=== PATIENT | female | born 1965 | race African-American/Black ===

== ENCOUNTER 2016-07-01 12:26 | Inpatient (IN) | payer OTHER ==
[2016-07-01 18:08] VITALS: BMI 26.2
--- NOTE | 2016-07-01 18:13 | HP ---
CIWA Score - CIWA Score Nausea/Vomitin-Mild Nausea/No Vomiting Muscle Tremors: 4-Moderate,w/Arms Extend Anxiety: 4-Mod. Anxious/Guarded Agitation: 4-Moderately Restless Paroxysmal Sweats: 1-Minimal Palms Moist Orientation: 1-Uncertain about Date Tacttile Disturbances: 0-None Auditory Disturbances: 0-None Visual Disturbances: 0-None Headache: 1-Very Mild CIWA-Ar Total Score: 16 Admission ROS BHS - HPI Chief Complaint: WITHDRAWAL SX Allergies/Adverse Reactions: Allergies Allergy/AdvReac Type Severity Reaction Status Date / Time No Known Allergies Allergy Verified 07/01/16 18:17 History of Present Illness: 50 YEARS OLD FEMALE WITH LONG HISTORY OF ALCOHOL NICOTINE DEPENDENCE HAS GERD, METHADONE 130 MG DAILY AND DEPRESSION IS ADMITTED TO DETOX Exam Limitations: No Limitations - Ebola screening Have you traveled outside of the country in the last 21 days: No Have you had contact with anyone from an Ebola affected area: No Have you been sick,other than usual withdrawal symptoms: No Do you have a fever: No - Review of Systems Constitutional: Chills, Loss of Appetite, Changes in sleep, Unintentional Wgt. Loss, Unexplained wgt Loss EENT: reports: No Symptoms Reported, Dental Problems (NO TEETH) Respiratory: reports: No Symptoms reported Cardiac: reports: No Symptoms Reported GI: reports: Nausea, Poor Appetite, Poor Fluid Intake, Indigestion, Abdominal cramping : reports: No Symptoms Reported Musculoskeletal: reports: Back Pain, Joint Pain, Muscle Pain, Neck Pain Integumentary: reports: Change in Color (IV OPIOID) Neuro: reports: Tremors Endocrine: reports: No Symptoms Reported Hematology: reports: No Symptoms Reported Psychiatric: reports: Judgement Intact, Orientated x3, Depressed Other Systems: Reviewed and Negative Patient History - Patient Medical History Hx Anemia: No Hx Asthma: No Hx Chronic Obstructive Pulmonary Disease (COPD): No Hx Cancer: No Hx Cardiac Disorders: No Hx Congestive Heart Failure: No Hx Hypertension: No Hx Hypercholesterolemia: No Hx Pacemaker: No HX Cerebrovascular Accident: No Hx Seizures: No Hx Dementia: No Hx Diabetes: No Hx Gastrointestinal Disorders: Yes Hx Liver Disease: No Hx Genitourinary Disorders: No Hx Sexually Transmitted Disorders: No Hx Renal Disease (ESRD): No Hx Thyroid Disease: No Hx Human Immunodeficiency Virus (HIV): No Hx Hepatitis C: No Hx Depression: Yes Hx Suicide Attempt: No Hx Bipolar Disorder: No Hx Schizophrenia: No - Patient Surgical History Past Surgical History: No - PPD History Previous Implant?: Yes Documented Results: Negative w/o proof Implanted On Prior [facility] Admission?: No PPD to be Administered?: Yes - Reproductive History Patient is a Female of Child Bearing Age (11 -55 yrs old): Yes Last Menstrual Period: 07/02/11 Patient : No - Smoking Cessation Smoking history: Current every day smoker Have you smoked in the past 12 months: Yes Aproximately how many cigarettes per day: 20 Cigars Per Day: 0 Hx Chewing Tobacco Use: No Initiated information on smoking cessation: Yes 'Breaking Loose' booklet given: 07/01/16 - Substance & Tx. History Hx Alcohol Use: Yes Hx Substance Use: Yes Substance Use Type: Alcohol, Cocaine, Opiates Hx Substance Use Treatment: No - Substances Abused Alcohol Route: Oral Frequency: Daily Family Disease History - Family Disease History Family Disease History: Other: Father (NO CONTACT), Mother (NO CONTACT) Other Family History: PATIENT WAS ADOPTED SINCE INFANT Admission Physical Exam BHS - Vital Signs Vital Signs: Vital Signs - 24 hr 07/01/16 18:05 Temperature 97.4 F L Pulse Rate 72 Respiratory 18 Rate Blood Pressure 150/80 - Physical General Appearance: Yes: Appropriately Dressed, Moderate Distress, Tremorous, Irritable, Sweating, Anxious HEENTM: Yes: Hearing grossly Normal, Normal ENT Inspection, Normocephalic, Normal Voice Respiratory: Yes: Chest Non-Tender, Lungs Clear, Normal Breath Sounds, No Respiratory Distress, No Accessory Muscle Use Neck: Yes: Supple, Trachea in good position Breast: Yes: Breasts Symetrical Cardiology: Yes: Regular Rhythm, Regular Rate, S1, S2 Abdominal: Yes: Non Tender, Soft Genitourinary: Yes: Within Normal Limits Back: Yes: Normal Inspection Musculoskeletal: Yes: full range of Motion, Gait Steady Extremities: Yes: Normal Range of Motion, Non-Tender, Tremors Neurological: Yes: Fully Oriented, Alert, Motor Strength 5/5, Normal Response, Depressed Affect Integumentary: Yes: Warm, Track Jeff Lymphatic: Yes: Within Normal Limits - Diagnostic (1) Alcohol dependence with uncomplicated withdrawal Current Visit: Yes Status: Acute (2) GERD (gastroesophageal reflux disease) Current Visit: Yes Status: Chronic Qualifiers: Esophagitis presence: without esophagitis Qualified Code(s): K21.9 - Gastro-esophageal reflux disease without esophagitis (3) Nicotine dependence Current Visit: Yes Status: Acute Qualifiers: Nicotine product type: cigarettes Substance use status: in withdrawal Qualified Code(s): F17.213 - Nicotine dependence, cigarettes, with withdrawal (4) Methadone maintenance therapy patient Current Visit: Yes Status: Chronic Comment: 130 MG VERIFICATION PENDING (5) Depression (emotion) Current Visit: Yes Status: Suspected Qualifiers: Depression Type: dysthymia Qualified Code(s): F34.1 - Dysthymic disorder (6) Cocaine dependence, uncomplicated Current Visit: Yes Status: Chronic Cleared for Admission S - Detox or Rehab [facility] Level of Care: Medically Managed Detox Regimen/Protocol: Librium S Breath Alcohol Content Breath Alcohol Content: 0 Urine Pregancy Test - Result Urine Test Results: Negative- NO Line Present Urine Drug Screen - Results Drug Screen Negative: No Urine Drug Screen Results: JANNET-Cocaine, OPI-Opiates, MTD-Methadone
[2016-07-01] MEDS ORDERED: MAGNESIUM CITRATE 300 ML BOTTLE PO PRN (18:23)
[2016-07-01] MEDS ORDERED: LOPERAMIDE HCL 2 MG CAPSULE PO PRN (18:23)
[2016-07-01] MEDS ORDERED: MENTHOL/PHENOL 1 EACH UD MM PRN (18:23)
[2016-07-01] MEDS ORDERED: MAG HYDROX/AL HYDROX/SIMETH 30 ML UNIT-DOSE CUP PO PRN (18:23)
[2016-07-01] MEDS ORDERED: NICOTINE POLACRILEX 4 MG GUM BC PRN (18:23)
[2016-07-01] MEDS ORDERED: guaiFENesin/D-METHORPHAN HB 10 ML UNIT-DOSE CUPS PO PRN (18:23)
[2016-07-01] MEDS ORDERED: chlordiazePOXIDE HCL 25 MG CAPSULE PO PRN (18:23)
[2016-07-01] MEDS ORDERED: ACETAMINOPHEN 325 MG TABLET (FP) PO PRN (18:23)
[2016-07-01] MEDS ORDERED: P-EPHED 60MG/TRIPROLIDI 2.5MG TABLET PO PRN (18:23)
[2016-07-01] MEDS ORDERED: MAGNESIUM HYDROX 2400MG/30ML ORAL SUSPENSION 30 ML CUP PO PRN (18:23)
[2016-07-01] MEDS ORDERED: cloNIDine HCL 0.1 MG TABLET PO PRN (18:25)
[2016-07-01] MEDS ORDERED: chlordiazePOXIDE HCL 25 MG CAPSULE PO ONE (19:00)
[2016-07-01] MEDS: chlordiazePOXIDE HCL 25 MG CAPSULE PO SCH (22:09)
[2016-07-01] MEDS: RANITIDINE HCL 150 MG TABLET (FP) PO SCH (22:09)
[2016-07-01] MEDS: THIAMINE HCL 100 MG TABLET (FP) PO SCH (22:09)
[2016-07-01] MEDS: diphenhydrAMINE HCL 50 MG CAPSULE PO PRN (22:11)
[2016-07-01 23:27] LABS: URINE APPEARANCE CLEAR; URINE BILIRUBIN NEGATIVE (NEGATIVE); URINE BLOOD NEGATIVE (NEGATIVE); URINE COLOR YELLOW; URINE GLUCOSE (UA) NEGATIVE (NEGATIVE); URINE KETONE NEGATIVE (NEGATIVE); URINE NITRITE NEGATIVE (NEGATIVE); URINE PROTEIN NEGATIVE (NEGATIVE); URINE UROBILINOGEN NEGATIVE E.U./dl (0.2-1.0)
[2016-07-01 23:28] LABS: URINE LEUK ESTERASE TRACE (NEGATIVE)
[2016-07-01 23:29] LABS: URINE BACTERIA RARE /hpf (NONE SEEN); URINE MUCUS RARE; URINE RBC 1 /hpf (0-3); URINE WBC 2 /hpf (3-5)
[2016-07-02] MEDS: chlordiazePOXIDE HCL 25 MG CAPSULE PO SCH ×4 (05:30→22:27)
[2016-07-02] MEDS ORDERED: METHADONE HCL 10 MG TABLET PO ONE (08:52)
--- NOTE | 2016-07-02 08:56 | CONSULT ---
[facility] Psychiatric Consult - Data Date of interview: 07/02/16 Admission source: [facility] Identifying data: This is 50 years old female with psychiatric hospitalization history, history of suicidal attempts, history of Bipolar Disorder intoxicated with: Alcohol, Cocaine, Opioids nad Nicotine Substance Abuse History: Drug Screen Negative: No. Urine Drug Screen Results: JANNET-Cocaine, OPI-Opiates, MTD-Methadone. - Smoking Cessation. Smoking history : Current every day smoker. Have you smoked in the past 12 months: Yes. Aproximately how many cigarettes per day: 20. Cigars Per Day: 0. Hx Chewing Tobacco Use: No. Initiated information on smoking cessation: Yes. 'Breaking Loose' booklet given: 07/01/16. - Substance & Tx. History. Hx Alcohol Use: Yes. Hx Substance Use: Yes. Substance Use Type: Alcohol, Cocaine, Opiates. Hx Substance Use Treatment: No. - Substances Abused. Alcohol. Route: Oral. Frequency: Daily Medical History: GERD, MMTP 130mg per day Psychiatric History: Patient reprots history of Bipolar Disorder/ Schizoaffective disorder, Bipolar type, with most recent psychiatric admission on 2015 at [facility] for safety aftrer suicidal attempt - cutting hert left forearm, no stitches applyed, reports two additional suicidal attempts prior, cutting her left forearm after one of them 7 stitchers was applyed, reports no suicidal attempts since last [facility] admission. Reports currently taking: Depakote 750mg po bid. Lexapro 10mg poqd. Risperdal 1mg po qhs Physical/Sexual Abuse/Trauma History: Denies Additional Comment: Drug Screen Negative: No. Urine Drug Screen Results: JANNET- Cocaine, OPI-Opiates, MTD-Methadone. Depakote 750mg po bid. Lexapro 10mg poqd. Risperdal 1mg po qhs Mental Status Exam - Mental Status Exam Alert and Oriented to: Person Cognitive Function: Fair Patient Appearance: Unkempt Mood: Nervous, Anxious Affect: Mood Congruent Patient Behavior: Cooperative Speech Pattern: Appropriate Voice Loudness: Normal Thought Process: Goal Oriented Thought Disorder: Being Controlled Hallucinations: Denies Suicidal Ideation: Denies Homicidal Ideation: Denies Insight/Judgement: Fair Sleep: Difficulty falling asleep Appetite: Weight gain Muscle strength/Tone: Normal Gait/Station: Normal Additional Comments: Depakote 750mg po bid. Lexapro 10mg poqd. Risperdal 1mg po qhs Psychiatric Findings - Problem List ([place] 1, 2,3) (1) Alcohol dependence with uncomplicated withdrawal Current Visit: Yes Status: Acute (2) Nicotine dependence Current Visit: Yes Status: Acute Qualifiers: Nicotine product type: cigarettes Substance use status: in withdrawal Qualified Code(s): F17.213 - Nicotine dependence, cigarettes, with withdrawal (3) Cocaine dependence, uncomplicated Current Visit: Yes Status: Chronic (4) Methadone maintenance therapy patient Current Visit: Yes Status: Chronic Comment: 130 MG VERIFICATION PENDING (5) Bipolar 1 disorder Current Visit: Yes Status: Acute - Initial Treatment Plan Initial Treatment Plan: Depakote 750mg po bid. Lexapro 10mg poqd. Risperdal 1mg po qhs
[2016-07-02] MEDS ORDERED: METHADONE 120 MG, METHADONE 10 MG PO ONE (09:00)
[2016-07-02] MEDS ORDERED: METHADONE HCL 40 MG DISPERSABLE TABLET ONE (09:18)
[2016-07-02] MEDS ORDERED: METHADONE HCL 10 MG TABLET ONE (09:18)
[2016-07-02 09:51] LABS: MCH 22.6 pg (25.7-33.7); MCHC 31.1 g/dl (32.0-36.0); MEAN CELL VOLUME 72.8 fl (80-96); MEAN PLT VOLUME 8.7 fl (7.5-11.1); PLATELET COUNT 260 K/MM3 (134-434); RDW 15.9 % (11.6-15.6); WHITE BLOOD COUNT 5.2 K/mm3 (4.0-10.0)
--- NOTE | 2016-07-02 10:11 | PN ---
[facility] CIWA - CIWA Score Nausea/Vomitin Muscle Tremors: 3 Anxiety: 3 Agitation: 3 Paroxysmal Sweats: 3 Orientation: 0-Oriented Tacttile Disturbances: 2-Mild Itch/Numbness/Burn Auditory Disturbances: 0-None Visual Disturbances: 0-None Headache: 0-None Present CIWA-Ar Total Score: 17 S Progress Note (SOAP) Subjective: interrupted sleep, sweats, shakes, nausea, , cramps-stomach and legs Objective: 07/02/16 10:09 Vital Signs Temperature 98.6 F 07/02/16 09:52 Pulse Rate 72 07/02/16 09:52 Respiratory Rate 18 07/02/16 09:52 Blood Pressure 102/70 07/02/16 09:52 O2 Sat by Pulse Oximetry (%) Laboratory Tests 07/01/16 07/02/16 23:10 06:00 WBC 5.2 RBC 5.31 H Hgb 12.0 Hct 38.7 MCV 72.8 L MCHC 31.1 L RDW 15.9 H Plt Count 260 MPV 8.7 Urine Color Yellow Urine Appearance Clear Urine pH 5.0 Urine Protein Negative Urine Glucose (UA) Negative Urine Ketones Negative Urine Blood Negative Urine Nitrite Negative Urine Bilirubin Negative Urine Urobilinogen Negative Ur Leukocyte Esterase Trace H Urine RBC 1 Urine WBC 2 Ur Epithelial Cells Moderate Urine Bacteria Rare Urine Mucus Rare pt aox3 in nad ambulating Assessment: 07/02/16 10:10 withdrawal sx;s cramps Plan: cont. detox increase fluids flexeril 10mg tid/prn imodium prn
[2016-07-02] MEDS: PRENATAL VITAMINS W/ FOLIC ACID TABLET (FP) PO SCH (10:20)
[2016-07-02] MEDS: NICOTINE 21 MG/24 HOURS TOPICAL PATCH TD SCH (10:21)
[2016-07-02] MEDS: ESCITALOPRAM OXALATE 10 MG TABLET (FP) PO SCH (10:21)
[2016-07-02] MEDS: DIVALPROEX SODIUM 250 MG TABLET E.C. (FP) PO SCH ×2 (10:21→22:26)
[2016-07-02] MEDS: RANITIDINE HCL 150 MG TABLET (FP) PO SCH ×2 (10:21→22:27)
[2016-07-02 10:24] LABS: ALBUMIN 3.9 g/dl (3.4-5.0); ALK PHOS 79 U/L (45-117); ANION GAP 8 (8-16); BILIRUBIN,TOTAL 0.3 mg/dL (0.2-1.0); CALCIUM 9.4 mg/dL (8.5-10.1); CO2 31 mmol/L (21-32); COCKROFT - GAULT 101.7875; CREATININE 0.9 mg/dL (0.55-1.02); GLUCOSE,RANDOM 119 mg/dL (74-106); SGOT/AST 30 U/L (15-37); SGPT/ALT 22 U/L (12-78); TOT PROT 7.5 g/dl (6.4-8.2)
--- NOTE | 2016-07-02 13:12 | EKG ---
Test Reason : Blood Pressure : / mmHG Vent. Rate : 053 BPM Atrial Rate : 053 BPM P-R Int : 140 ms QRS Dur : 086 ms QT Int : 456 ms P-R-T Axes : 060 042 038 degrees QTc Int : 427 ms SINUS BRADYCARDIA OTHERWISE NORMAL ECG NO PREVIOUS ECGS AVAILABLE Confirmed by DAPHNEY TINSLEY MD ([id number]) on 07/02/2016 1:11:55 PM Referred By: Confirmed By:DAPHNEY TINSLEY MD
[2016-07-02] MEDS: diphenhydrAMINE HCL 50 MG CAPSULE PO PRN (22:27)
[2016-07-02] MEDS: THIAMINE HCL 100 MG TABLET (FP) PO SCH (22:27)
[2016-07-02] MEDS: risperiDONE 1 MG TABLET (FP) PO SCH (22:27)
[2016-07-03] MEDS ORDERED: METHADONE HCL 40 MG DISPERSABLE TABLET ONE (04:48)
[2016-07-03] MEDS ORDERED: METHADONE HCL 10 MG TABLET ONE (04:48)
[2016-07-03] MEDS: METHADONE 120 MG, METHADONE 10 MG PO SCH (05:42)
[2016-07-03] MEDS ORDERED: METHADONE HCL 40 MG DISPERSABLE TABLET PO SCH (06:00)
[2016-07-03] MEDS: chlordiazePOXIDE HCL 25 MG CAPSULE PO SCH ×3 (06:54→17:14)
[2016-07-03] MEDS: DIVALPROEX SODIUM 250 MG TABLET E.C. (FP) PO SCH ×2 (10:23→22:28)
[2016-07-03] MEDS: RANITIDINE HCL 150 MG TABLET (FP) PO SCH ×2 (10:23→22:28)
[2016-07-03] MEDS: PRENATAL VITAMINS W/ FOLIC ACID TABLET (FP) PO SCH (10:23)
[2016-07-03] MEDS: ESCITALOPRAM OXALATE 10 MG TABLET (FP) PO SCH (10:23)
[2016-07-03] MEDS: NICOTINE 21 MG/24 HOURS TOPICAL PATCH TD SCH (10:24)
--- NOTE | 2016-07-03 11:15 | PN ---
[facility] CIWA - CIWA Score Nausea/Vomitin-No Nausea/No Vomiting Muscle Tremors: 3 Anxiety: 2 Agitation: 3 Paroxysmal Sweats: 3 Orientation: 0-Oriented Tacttile Disturbances: 0-None Auditory Disturbances: 0-None Visual Disturbances: 0-None Headache: 0-None Present CIWA-Ar Total Score: 11 S Progress Note (SOAP) Subjective: sweats tired sleepy interrupted sleep Objective: 07/03/16 11:13 Vital Signs Temperature 97.4 F L 07/03/16 10:00 Pulse Rate 61 07/03/16 10:00 Respiratory Rate 20 07/03/16 10:00 Blood Pressure 93/71 07/03/16 10:00 O2 Sat by Pulse Oximetry (%) Laboratory Tests 07/01/16 07/02/16 07/02/16 23:10 06:00 06:00 WBC 5.2 RBC 5.31 H Hgb 12.0 Hct 38.7 MCV 72.8 L MCHC 31.1 L RDW 15.9 H Plt Count 260 MPV 8.7 Sodium 142 Potassium 3.8 Chloride 103 Carbon Dioxide 31 Anion Gap 8 BUN 5 L Creatinine 0.9 Creat Clearance w eGFR > 60 Random Glucose 119 H Calcium 9.4 Total Bilirubin 0.3 AST 30 ALT 22 Alkaline Phosphatase 79 Total Protein 7.5 Albumin 3.9 Urine Color Yellow Urine Appearance Clear Urine pH 5.0 Ur Specific [place] 1.015 Urine Protein Negative Urine Glucose (UA) Negative Urine Ketones Negative Urine Blood Negative Urine Nitrite Negative Urine Bilirubin Negative Urine Urobilinogen Negative Ur Leukocyte Esterase Trace H Urine RBC 1 Urine WBC 2 Ur Epithelial Cells Moderate Urine Bacteria Rare Urine Mucus Rare RPR Titer 07/02/16 06:00 WBC RBC Hgb Hct MCV MCHC RDW Plt Count MPV Sodium Potassium Chloride Carbon Dioxide Anion Gap BUN Creatinine Creat Clearance w eGFR Random Glucose Calcium Total Bilirubin AST ALT Alkaline Phosphatase Total Protein Albumin Urine Color Urine Appearance Urine pH Ur Specific [place] Urine Protein Urine Glucose (UA) Urine Ketones Urine Blood Urine Nitrite Urine Bilirubin Urine Urobilinogen Ur Leukocyte Esterase Urine RBC Urine WBC Ur Epithelial Cells Urine Bacteria Urine Mucus RPR Titer Nonreactive awake/alert ambulating no acute distress Assessment: 07/03/16 11:15 withdrawal sx Plan: continue detox increase fluids
[2016-07-03] MEDS: risperiDONE 1 MG TABLET (FP) PO SCH (22:28)
[2016-07-03] MEDS: THIAMINE HCL 100 MG TABLET (FP) PO SCH (22:28)
[2016-07-03] MEDS: chlordiazePOXIDE 5 MG CAPSULE PO SCH (22:28)
[2016-07-04] MEDS ORDERED: METHADONE HCL 40 MG DISPERSABLE TABLET ONE (04:05)
[2016-07-04] MEDS ORDERED: METHADONE HCL 10 MG TABLET ONE (04:05)
[2016-07-04] MEDS: chlordiazePOXIDE 5 MG CAPSULE PO SCH ×3 (06:35→18:15)
[2016-07-04] MEDS: METHADONE 120 MG, METHADONE 10 MG PO SCH (06:38)
[2016-07-04] MEDS: DIVALPROEX SODIUM 250 MG TABLET E.C. (FP) PO SCH ×2 (10:31→22:21)
[2016-07-04] MEDS: ESCITALOPRAM OXALATE 10 MG TABLET (FP) PO SCH (10:31)
[2016-07-04] MEDS: RANITIDINE HCL 150 MG TABLET (FP) PO SCH ×2 (10:31→22:21)
[2016-07-04] MEDS: NICOTINE 21 MG/24 HOURS TOPICAL PATCH TD SCH (10:33)
[2016-07-04] MEDS: PRENATAL VITAMINS W/ FOLIC ACID TABLET (FP) PO SCH (10:33)
--- NOTE | 2016-07-04 19:58 | PN ---
BHS Progress Note (SOAP) Subjective: Sweating, Vomiting, Tremors, Stomach Cramping, Body Aches. Objective: PT. A & O X 1 (DISORIENTED ABOUT DAY / DATE AND ABOUT CURRENT LOCATION). PT. OBSERVED AMBULATING ON UNIT. 07/04/16 19:56 Vital Signs Temperature 98.1 F 07/04/16 18:34 Pulse Rate 67 07/04/16 18:34 Respiratory Rate 18 07/04/16 18:34 Blood Pressure 109/69 07/04/16 18:34 O2 Sat by Pulse Oximetry (%) Laboratory Tests 07/01/16 07/02/16 07/02/16 23:10 06:00 06:00 WBC 5.2 RBC 5.31 H Hgb 12.0 Hct 38.7 MCV 72.8 L MCHC 31.1 L RDW 15.9 H Plt Count 260 MPV 8.7 Sodium 142 Potassium 3.8 Chloride 103 Carbon Dioxide 31 Anion Gap 8 BUN 5 L Creatinine 0.9 Creat Clearance w eGFR > 60 Random Glucose 119 H Calcium 9.4 Total Bilirubin 0.3 AST 30 ALT 22 Alkaline Phosphatase 79 Total Protein 7.5 Albumin 3.9 Urine Color Yellow Urine Appearance Clear Urine pH 5.0 Ur Specific [place] 1.015 Urine Protein Negative Urine Glucose (UA) Negative Urine Ketones Negative Urine Blood Negative Urine Nitrite Negative Urine Bilirubin Negative Urine Urobilinogen Negative Ur Leukocyte Esterase Trace H Urine RBC 1 Urine WBC 2 Ur Epithelial Cells Moderate Urine Bacteria Rare Urine Mucus Rare RPR Titer 07/02/16 06:00 WBC RBC Hgb Hct MCV MCHC RDW Plt Count MPV Sodium Potassium Chloride Carbon Dioxide Anion Gap BUN Creatinine Creat Clearance w eGFR Random Glucose Calcium Total Bilirubin AST ALT Alkaline Phosphatase Total Protein Albumin Urine Color Urine Appearance Urine pH Ur Specific [place] Urine Protein Urine Glucose (UA) Urine Ketones Urine Blood Urine Nitrite Urine Bilirubin Urine Urobilinogen Ur Leukocyte Esterase Urine RBC Urine WBC Ur Epithelial Cells Urine Bacteria Urine Mucus RPR Titer Nonreactive LABS NOTED. Assessment: 07/04/16 19:58 WITHDRAWAL SYMPTOMS. Plan: CONTINUE DETOX. ADVISED PT. TO FOLLOW-UP WITH [facility] AFTER DISCHARGE FROM DETOX FOR GENERAL MEDICAL ASSESSMENT AND FOR ABNORMAL ADMISSION CBC VALUES.
[2016-07-04] MEDS: THIAMINE HCL 100 MG TABLET (FP) PO SCH (22:21)
[2016-07-04] MEDS: risperiDONE 1 MG TABLET (FP) PO SCH (22:21)
[2016-07-04] MEDS: chlordiazePOXIDE HCL 10 MG CAPSULE PO SCH (22:21)
[2016-07-05] MEDS ORDERED: METHADONE HCL 10 MG TABLET ONE (04:31)
[2016-07-05] MEDS ORDERED: METHADONE HCL 40 MG DISPERSABLE TABLET ONE (04:31)
[2016-07-05] MEDS: chlordiazePOXIDE HCL 10 MG CAPSULE PO SCH ×2 (05:28→10:09)
[2016-07-05] MEDS: METHADONE 120 MG, METHADONE 10 MG PO SCH (05:28)
[2016-07-05 07:40] VITALS: BP 116/76; PULSE 59; TEMP 97.3
[2016-07-05] MEDS: DIVALPROEX SODIUM 250 MG TABLET E.C. (FP) PO SCH (10:08)
[2016-07-05] MEDS: RANITIDINE HCL 150 MG TABLET (FP) PO SCH (10:08)
[2016-07-05] MEDS: NICOTINE 21 MG/24 HOURS TOPICAL PATCH TD SCH (10:09)
[2016-07-05] MEDS: PRENATAL VITAMINS W/ FOLIC ACID TABLET (FP) PO SCH (10:09)
[2016-07-05] MEDS: ESCITALOPRAM OXALATE 10 MG TABLET (FP) PO SCH (10:09)
--- NOTE | 2016-07-05 11:05 | DS ---
[facility] Detox Discharge Summary Admission Date: 07/01/16 Discharge Date: 07/05/16 - History Present History: Alcohol Dependence, Cocaine Dependence, MMTP Pertinent Past History: GERD - Physical Exam Results Vital Signs: Vital Signs Temperature 97.3 F L 07/05/16 07:38 Pulse Rate 59 L 07/05/16 07:38 Respiratory Rate 18 07/05/16 07:38 Blood Pressure 116/76 07/05/16 07:38 O2 Sat by Pulse Oximetry (%) Pertinent Admission Physical Exam Findings: Withdrawal sx. Laboratory Last Values WBC 5.2 K/mm3 (4.0-10.0) 07/02/16 06:00 RBC 5.31 M/mm3 (3.60-5.2) H 07/02/16 06:00 Hgb 12.0 GM/dL (10.7-15.3) 07/02/16 06:00 Hct 38.7 % (32.4-45.2) 07/02/16 06:00 MCV 72.8 fl (80-96) L 07/02/16 06:00 MCHC 31.1 g/dl (32.0-36.0) L 07/02/16 06:00 RDW 15.9 % (11.6-15.6) H 07/02/16 06:00 Plt Count 260 K/MM3 (134-434) 07/02/16 06:00 MPV 8.7 fl (7.5-11.1) 07/02/16 06:00 Sodium 142 mmol/L (136-145) 07/02/16 06:00 Potassium 3.8 mmol/L (3.5-5.1) 07/02/16 06:00 Chloride 103 mmol/L (98-107) 07/02/16 06:00 Carbon Dioxide 31 mmol/L (21-32) 07/02/16 06:00 Anion Gap 8 (8-16) 07/02/16 06:00 BUN 5 mg/dL (7-18) L 07/02/16 06:00 Creatinine 0.9 mg/dL (0.55-1.02) 07/02/16 06:00 Creat Clearance w eGFR > 60 (>60) 07/02/16 06:00 Random Glucose 119 mg/dL (74-106) H 07/02/16 06:00 Calcium 9.4 mg/dL (8.5-10.1) 07/02/16 06:00 Total Bilirubin 0.3 mg/dL (0.2-1.0) 07/02/16 06:00 AST 30 U/L (15-37) 07/02/16 06:00 ALT 22 U/L (12-78) 07/02/16 06:00 Alkaline Phosphatase 79 U/L (45-117) 07/02/16 06:00 Total Protein 7.5 g/dl (6.4-8.2) 07/02/16 06:00 Albumin 3.9 g/dl (3.4-5.0) 07/02/16 06:00 Urine Color Yellow 07/01/16 23:10 Urine Appearance Clear 07/01/16 23:10 Urine pH 5.0 (5.0-8.0) 07/01/16 23:10 Ur Specific [place] 1.015 (1.005-1.025) 07/01/16 23:10 Urine Protein Negative (NEGATIVE) 07/01/16 23:10 Urine Glucose (UA) Negative (NEGATIVE) 07/01/16 23:10 Urine Ketones Negative (NEGATIVE) 07/01/16 23:10 Urine Blood Negative (NEGATIVE) 07/01/16 23:10 Urine Nitrite Negative (NEGATIVE) 07/01/16 23:10 Urine Bilirubin Negative (NEGATIVE) 07/01/16 23:10 Urine Urobilinogen Negative E.U./dl (0.2-1.0) 07/01/16 23:10 Ur Leukocyte Esterase Trace (NEGATIVE) H 07/01/16 23:10 Urine RBC 1 /hpf (0-3) 07/01/16 23:10 Urine WBC 2 /hpf (3-5) 07/01/16 23:10 Ur Epithelial Cells Moderate /hpf (FEW) 07/01/16 23:10 Urine Bacteria Rare /hpf (NONE SEEN) 07/01/16 23:10 Urine Mucus Rare 07/01/16 23:10 RPR Titer Nonreactive (NONREACTIVE) 07/02/16 06:00 labs noted - Treatment Hospital Course: Detox Protocol Followed, Detoxed Safely, Responded well, Discharged Condition Good, Rehab Referral Accepted Patient has Accepted a Rehab Referral to: [facility] Rehab - Medication Discharge Medications: Ambulatory Orders Divalproex [Depakote -] 750 mg PO BID #60 tab 07/02/16 Escitalopram Oxalate [Lexapro -] 10 mg PO DAILY #30 tab 07/02/16 Risperidone [Risperdal -] 1 mg PO HS #30 tablet 07/02/16 - Diagnosis (1) Alcohol dependence with uncomplicated withdrawal Status: Acute (2) Bipolar 1 disorder Status: Acute (3) Nicotine dependence Status: Acute Qualifiers: Nicotine product type: cigarettes Substance use status: in withdrawal Qualified Code(s): F17.213 - Nicotine dependence, cigarettes, with withdrawal (4) Cocaine dependence, uncomplicated Status: Chronic (5) GERD (gastroesophageal reflux disease) Status: Chronic Qualifiers: Esophagitis presence: without esophagitis Qualified Code(s): K21.9 - Gastro-esophageal reflux disease without esophagitis (6) Methadone maintenance therapy patient Status: Chronic - AMA Did Patient Leave Against Medical Advice: No
== END 2016-07-05 10:35 | disposition other institution (70) | DRG 773 ==
LOC: YASAS 12:26 → Y6N 18:32
PROVIDERS: ADMIT Internal Medicine Addiction Medicine; ATTEND Internal Medicine Addiction Medicine
PROC: HZ2ZZZZ Detoxification Services for Substance Abuse Treatment (ICD-10-PCS; principal; 2016-07-01)
DX: F10.230 Alcohol dependence with withdrawal, uncomplicated (principal); F11.20 Opioid dependence, uncomplicated; F14.20 Cocaine dependence, uncomplicated; F17.213 Nicotine dependence, cigarettes, with withdrawal; F31.89 Other bipolar disorder; F34.1 Dysthymic disorder; K21.9 Gastro-esophageal reflux disease without esophagitis; R10.9 Unspecified abdominal pain; R25.2 Cramp and spasm
CPT/HCPCS: 36415; 80053; 81003; 81015; 85027; 86593; 93005; 93010; J2794

== ENCOUNTER 2016-07-05 10:37 | Inpatient (IN) | payer OTHER ==
[2016-07-05] MEDS ORDERED: MAGNESIUM HYDROX 2400MG/30ML ORAL SUSPENSION 30 ML CUP PO PRN (13:21)
[2016-07-05] MEDS ORDERED: ACETAMINOPHEN 325 MG TABLET (FP) PO PRN (13:21)
[2016-07-05] MEDS ORDERED: guaiFENesin/D-METHORPHAN HB 10 ML UNIT-DOSE CUPS PO PRN (13:21)
[2016-07-05] MEDS ORDERED: P-EPHED 60MG/TRIPROLIDI 2.5MG TABLET PO PRN (13:21)
[2016-07-05] MEDS ORDERED: MENTHOL/PHENOL 1 EACH UD MM PRN (13:21)
[2016-07-05] MEDS ORDERED: LOPERAMIDE HCL 2 MG CAPSULE PO PRN (13:21)
[2016-07-05] MEDS ORDERED: MAGNESIUM CITRATE 300 ML BOTTLE PO PRN (13:21)
--- NOTE | 2016-07-05 13:24 | HP ---
[facility] Rehab Assess/Revision - Admission History Admitted to Rehab from: [facility] [place] Date of Admission to Rehab: 07/05/16 - Vital signs Vital Signs: Vital Signs Period Temp Pulse Resp BP Sys/Florian Pulse Ox Last 24 Hr 98.0 F 55 18 112/76 - Findings Detox History & Physical reviewed: Yes Concur with findings: Yes
[2016-07-05] MEDS: THIAMINE HCL 100 MG TABLET (FP) PO SCH (21:56)
[2016-07-05] MEDS: risperiDONE 1 MG TABLET (FP) PO SCH (21:56)
[2016-07-05] MEDS: DIVALPROEX SODIUM 250 MG TABLET E.C. (FP) PO SCH (21:56)
[2016-07-05] MEDS: RANITIDINE HCL 150 MG TABLET (FP) PO SCH (21:56)
[2016-07-06] MEDS: MAG HYDROX/AL HYDROX/SIMETH 30 ML UNIT-DOSE CUP PO PRN (04:37)
[2016-07-06] MEDS ORDERED: METHADONE HCL 10 MG TABLET ONE (05:51)
[2016-07-06] MEDS ORDERED: METHADONE HCL 40 MG DISPERSABLE TABLET ONE (05:51)
[2016-07-06] MEDS ORDERED: METHADONE HCL 10 MG TABLET PO SCH (06:00)
[2016-07-06] MEDS: METHADONE 120 MG, METHADONE 10 MG PO SCH (06:33)
[2016-07-06] MEDS: RANITIDINE HCL 150 MG TABLET (FP) PO SCH ×2 (10:27→21:20)
[2016-07-06] MEDS: DIVALPROEX SODIUM 250 MG TABLET E.C. (FP) PO SCH ×2 (10:27→21:21)
[2016-07-06] MEDS: PRENATAL VITAMINS W/ FOLIC ACID TABLET (FP) PO SCH (10:27)
[2016-07-06] MEDS: ESCITALOPRAM OXALATE 10 MG TABLET (FP) PO SCH (10:27)
[2016-07-06] MEDS: NICOTINE 21 MG/24 HOURS TOPICAL PATCH TD SCH (10:27)
--- NOTE | 2016-07-06 13:13 | HP ---
Psychiatrist Admission - Data Date of interview: 07/06/16 Admission source: Transfer from [address] [place] [address] Identifying data: Admission to [address] for this 50 y/o AA female seeking rehabilitation treatment for alcohol,heroin and cocaine dependence.Patient is single,a mother of one,domiciled,unemployed and supported on SSI benefits. Medical History: GERD. Psychiatric History: Patient admits to a history of multiple psychiatric hospitalizations.Known to [facility].Diagnosed with Schizoaffective Disorder.Maintained on risperdal 1 mg/hs + depakote 750 mg po bid + lexapro 10 mg/day.Patient is also on methadone maintenance (130 mg/day) .Noted history of suicide attempt via self-mutilation (cutting). Physical/Sexual Abuse/Trauma History: Patient declines to discuss this topic. Additional Comment: Urine Drug Screen Results: JANNET-Cocaine, OPI-Opiates, MTD- Methadone.Noted. - Smoking Cessation. Smoking history: Current every day smoker. Have you smoked in the past 12 months: Yes. Aproximately how many cigarettes per day: 20. Cigars Per Day: 0. Hx Chewing Tobacco Use: No. Initiated information on smoking cessation: Yes. 'Breaking Loose' booklet given : 07/01/16. - Substance & Tx. History. Hx Alcohol Use: Yes. Hx Substance Use : Yes. Substance Use Type: Alcohol, Cocaine, Opiates. Hx Substance Use Treatment: No. - Substances Abused. Alcohol. Route: Oral. Frequency: Daily. Confirmed by patient. Vital Signs: Vital Signs - 24 hr 07/06/16 07/06/16 07/06/16 00:30 03:30 06:54 Temperature 98.2 F Pulse Rate 78 Respiratory 20 20 18 Rate Blood Pressure 110/70 Allergies/Adverse Reactions: Allergies Allergy/AdvReac Type Severity Reaction Status Date / Time No Known Allergies Allergy Verified 07/01/16 18:17 - Substance Abuse/Tx History Hx Alcohol Use: Yes Hx Substance Use: Yes Substance Use Type: Alcohol, Cocaine, Heroin Hx Substance Use Treatment: Yes - Admission Criteria Previous failed treatment: Yes Poor recovery environment: Yes Comorbidities: Yes Lacks judgement: Yes Mental Status Exam - Mental Status Exam Alert and Oriented to: Time, Place, Person Cognitive Function: Grossly Intact Patient Appearance: Inappropriate (provocatively dressed ;tattoos over arms, chest) Mood: Withdrawn (neutral) Affect: Blunted Patient Behavior: Sedated, Fatigued, Cooperative Speech Pattern: Clear, Slurred Voice Loudness: Mildly Soft/Quiet Thought Process: Goal Oriented Thought Disorder: Not Present Hallucinations: Denies Suicidal Ideation: Denies Homicidal Ideation: Denies Insight/Judgement: Poor Sleep: Fair Appetite: Good Muscle strength/Tone: Normal Gait/Station: Normal Psychiatric Findings - Problem List ([place] 1, 2,3) (1) Alcohol dependence with uncomplicated withdrawal Current Visit: Yes Status: Acute (2) Nicotine dependence Current Visit: Yes Status: Acute Qualifiers: Nicotine product type: cigarettes Substance use status: in withdrawal Qualified Code(s): F17.213 - Nicotine dependence, cigarettes, with withdrawal (3) Cocaine dependence, uncomplicated Current Visit: Yes Status: Acute (4) Methadone maintenance therapy patient Current Visit: Yes Status: Acute Comment: 130 MG VERIFICATION PENDING (5) Schizoaffective disorder Current Visit: Yes Status: Chronic (6) GERD (gastroesophageal reflux disease) Current Visit: Yes Status: Chronic Qualifiers: Esophagitis presence: without esophagitis Qualified Code(s): K21.9 - Gastro-esophageal reflux disease without esophagitis - Initial Treatment Plan Initial Treatment Plan: Psychoeducation.Medications ordered (see list).Patient is made aware of side-effects/benefits.She agrees with this careplan.Monitor progress.Valproic acid level is pending.Will follow.
[2016-07-06] MEDS: risperiDONE 1 MG TABLET (FP) PO SCH (21:20)
[2016-07-06] MEDS: THIAMINE HCL 100 MG TABLET (FP) PO SCH (21:20)
[2016-07-07] MEDS ORDERED: METHADONE HCL 10 MG TABLET ONE (03:13)
[2016-07-07] MEDS ORDERED: METHADONE HCL 40 MG DISPERSABLE TABLET ONE (03:13)
[2016-07-07] MEDS: METHADONE 120 MG, METHADONE 10 MG PO SCH (06:17)
[2016-07-07] MEDS: PRENATAL VITAMINS W/ FOLIC ACID TABLET (FP) PO SCH (10:12)
[2016-07-07] MEDS: DIVALPROEX SODIUM 250 MG TABLET E.C. (FP) PO SCH ×2 (10:12→21:03)
[2016-07-07] MEDS: RANITIDINE HCL 150 MG TABLET (FP) PO SCH ×2 (10:13→21:03)
[2016-07-07] MEDS: ESCITALOPRAM OXALATE 10 MG TABLET (FP) PO SCH (10:13)
[2016-07-07] MEDS: NICOTINE 21 MG/24 HOURS TOPICAL PATCH TD SCH (10:13)
[2016-07-07] MEDS ORDERED: PT OWN MED DRAWER 7, Y5N ONE (19:38)
[2016-07-07] MEDS: THIAMINE HCL 100 MG TABLET (FP) PO SCH (21:03)
[2016-07-07] MEDS: risperiDONE 1 MG TABLET (FP) PO SCH (21:03)
[2016-07-08] MEDS ORDERED: METHADONE HCL 40 MG DISPERSABLE TABLET ONE (03:10)
[2016-07-08] MEDS ORDERED: METHADONE HCL 10 MG TABLET ONE (03:10)
[2016-07-08] MEDS: IBUPROFEN 400 MG TABLET (FP) PO PRN (05:54)
[2016-07-08] MEDS: METHADONE 120 MG, METHADONE 10 MG PO SCH (05:55)
[2016-07-08] MEDS ORDERED: PT OWN MED DRAWER 7, Y5N ONE (10:03)
[2016-07-08] MEDS: ESCITALOPRAM OXALATE 10 MG TABLET (FP) PO SCH (10:04)
[2016-07-08] MEDS: PRENATAL VITAMINS W/ FOLIC ACID TABLET (FP) PO SCH (10:04)
[2016-07-08] MEDS: RANITIDINE HCL 150 MG TABLET (FP) PO SCH ×2 (10:04→21:12)
[2016-07-08] MEDS: NICOTINE 21 MG/24 HOURS TOPICAL PATCH TD SCH (10:04)
[2016-07-08] MEDS: DIVALPROEX SODIUM 250 MG TABLET E.C. (FP) PO SCH ×2 (11:13→21:12)
[2016-07-08] MEDS: risperiDONE 1 MG TABLET (FP) PO SCH (21:12)
[2016-07-08] MEDS: THIAMINE HCL 100 MG TABLET (FP) PO SCH (21:12)
[2016-07-08] MEDS: NICOTINE POLACRILEX 4 MG GUM BUC PRN (21:14)
[2016-07-08] MEDS: MAG HYDROX/AL HYDROX/SIMETH 30 ML UNIT-DOSE CUP PO PRN (21:14)
[2016-07-09] MEDS ORDERED: METHADONE HCL 10 MG TABLET ONE (03:15)
[2016-07-09] MEDS ORDERED: METHADONE HCL 40 MG DISPERSABLE TABLET ONE (03:15)
[2016-07-09] MEDS: METHADONE 120 MG, METHADONE 10 MG PO SCH (06:20)
--- NOTE | 2016-07-09 07:34 | PN ---
S Progress Note (SOAP) Subjective: Pt. assessed after reporting having 2 unwitnessed falls 2 nights in a row in the bathroom. She states the bathroom floor was dry and reports she lost her balance. Objective: 07/09/16 07:30 Vital Signs 07/09/16 07/09/16 07/09/16 00:30 03:30 06:28 Temperature 97.9 F Pulse Rate 77 Respiratory 18 18 18 Rate Blood Pressure 127/86 07/09/16 07:32 Assessment: 07/09/16 07:30 Pt. is alert and oriented. FROM, ambulates with a steady gait. C/o of mild tenderness at to the back of her head. Denies vomiting. Plan: Fall protocol # 1 initiated and will be sent to the ER for further evaluation. Report given to Bhumika at [facility].
[2016-07-09] MEDS: ESCITALOPRAM OXALATE 10 MG TABLET (FP) PO SCH (10:47)
[2016-07-09] MEDS: DIVALPROEX SODIUM 250 MG TABLET E.C. (FP) PO SCH ×2 (10:47→21:11)
[2016-07-09] MEDS: NICOTINE 21 MG/24 HOURS TOPICAL PATCH TD SCH (10:48)
[2016-07-09] MEDS: PRENATAL VITAMINS W/ FOLIC ACID TABLET (FP) PO SCH (10:48)
[2016-07-09] MEDS: RANITIDINE HCL 150 MG TABLET (FP) PO SCH ×2 (10:48→21:11)
[2016-07-09] MEDS: risperiDONE 1 MG TABLET (FP) PO SCH (21:11)
[2016-07-09] MEDS: THIAMINE HCL 100 MG TABLET (FP) PO SCH (21:11)
[2016-07-10] MEDS ORDERED: METHADONE HCL 40 MG DISPERSABLE TABLET ONE (06:01)
[2016-07-10] MEDS ORDERED: METHADONE HCL 10 MG TABLET ONE (06:01)
[2016-07-10] MEDS: METHADONE 120 MG, METHADONE 10 MG PO SCH (06:02)
[2016-07-10] MEDS: ESCITALOPRAM OXALATE 10 MG TABLET (FP) PO SCH (09:56)
[2016-07-10] MEDS: NICOTINE 21 MG/24 HOURS TOPICAL PATCH TD SCH (09:56)
[2016-07-10] MEDS: PRENATAL VITAMINS W/ FOLIC ACID TABLET (FP) PO SCH (09:56)
[2016-07-10] MEDS: RANITIDINE HCL 150 MG TABLET (FP) PO SCH ×2 (09:56→21:09)
[2016-07-10] MEDS: DIVALPROEX SODIUM 250 MG TABLET E.C. (FP) PO SCH ×2 (09:56→21:09)
[2016-07-10] MEDS: NICOTINE POLACRILEX 4 MG GUM BUC PRN (09:59)
[2016-07-10] MEDS: risperiDONE 1 MG TABLET (FP) PO SCH (21:09)
[2016-07-10] MEDS: THIAMINE HCL 100 MG TABLET (FP) PO SCH (21:09)
[2016-07-11] MEDS ORDERED: METHADONE HCL 10 MG TABLET ONE (03:16)
[2016-07-11] MEDS ORDERED: METHADONE HCL 40 MG DISPERSABLE TABLET ONE (03:16)
[2016-07-11] MEDS: IBUPROFEN 400 MG TABLET (FP) PO PRN (04:46)
[2016-07-11] MEDS: METHADONE 120 MG, METHADONE 10 MG PO SCH (06:25)
[2016-07-11] MEDS: PRENATAL VITAMINS W/ FOLIC ACID TABLET (FP) PO SCH (10:03)
[2016-07-11] MEDS: NICOTINE 21 MG/24 HOURS TOPICAL PATCH TD SCH (10:03)
[2016-07-11] MEDS: DIVALPROEX SODIUM 250 MG TABLET E.C. (FP) PO SCH ×2 (10:04→21:25)
[2016-07-11] MEDS: RANITIDINE HCL 150 MG TABLET (FP) PO SCH ×2 (10:05→21:25)
[2016-07-11] MEDS: ESCITALOPRAM OXALATE 10 MG TABLET (FP) PO SCH (10:05)
[2016-07-11] MEDS: NICOTINE POLACRILEX 4 MG GUM BUC PRN ×2 (10:32→18:48)
[2016-07-11] MEDS: THIAMINE HCL 100 MG TABLET (FP) PO SCH (21:25)
[2016-07-11] MEDS: diphenhydrAMINE HCL 50 MG CAPSULE PO PRN (21:25)
[2016-07-11] MEDS: risperiDONE 1 MG TABLET (FP) PO SCH (21:25)
[2016-07-12] MEDS ORDERED: METHADONE HCL 10 MG TABLET ONE (03:19)
[2016-07-12] MEDS ORDERED: METHADONE HCL 40 MG DISPERSABLE TABLET ONE (03:20)
[2016-07-12] MEDS: METHADONE 120 MG, METHADONE 10 MG PO SCH (06:11)
[2016-07-12] MEDS: DIVALPROEX SODIUM 250 MG TABLET E.C. (FP) PO SCH ×2 (09:44→21:09)
[2016-07-12] MEDS: PRENATAL VITAMINS W/ FOLIC ACID TABLET (FP) PO SCH (09:44)
[2016-07-12] MEDS: ESCITALOPRAM OXALATE 10 MG TABLET (FP) PO SCH (09:44)
[2016-07-12] MEDS: NICOTINE 21 MG/24 HOURS TOPICAL PATCH TD SCH (09:45)
[2016-07-12] MEDS: RANITIDINE HCL 150 MG TABLET (FP) PO SCH ×2 (09:45→21:10)
[2016-07-12] MEDS: NICOTINE POLACRILEX 4 MG GUM BUC PRN (09:45)
[2016-07-12] MEDS ORDERED: PT OWN MED DRAWER 7, Y5N ONE (19:41)
[2016-07-12] MEDS: THIAMINE HCL 100 MG TABLET (FP) PO SCH (21:10)
[2016-07-12] MEDS: diphenhydrAMINE HCL 50 MG CAPSULE PO PRN (21:10)
[2016-07-12] MEDS: risperiDONE 1 MG TABLET (FP) PO SCH (21:10)
[2016-07-13] MEDS ORDERED: METHADONE HCL 10 MG TABLET ONE (06:11)
[2016-07-13] MEDS ORDERED: METHADONE HCL 40 MG DISPERSABLE TABLET ONE (06:11)
[2016-07-13] MEDS: METHADONE 120 MG, METHADONE 10 MG PO SCH (06:14)
[2016-07-13] MEDS: ESCITALOPRAM OXALATE 10 MG TABLET (FP) PO SCH (10:22)
[2016-07-13] MEDS: DIVALPROEX SODIUM 250 MG TABLET E.C. (FP) PO SCH ×2 (10:22→21:13)
[2016-07-13] MEDS: PRENATAL VITAMINS W/ FOLIC ACID TABLET (FP) PO SCH (10:22)
[2016-07-13] MEDS: RANITIDINE HCL 150 MG TABLET (FP) PO SCH ×2 (10:23→21:13)
[2016-07-13] MEDS: NICOTINE 21 MG/24 HOURS TOPICAL PATCH TD SCH (10:23)
[2016-07-13] MEDS: THIAMINE HCL 100 MG TABLET (FP) PO SCH (21:13)
[2016-07-13] MEDS: risperiDONE 1 MG TABLET (FP) PO SCH (21:13)
[2016-07-14] MEDS ORDERED: METHADONE HCL 40 MG DISPERSABLE TABLET ONE (05:50)
[2016-07-14] MEDS ORDERED: METHADONE HCL 10 MG TABLET ONE (05:50)
[2016-07-14] MEDS: METHADONE 120 MG, METHADONE 10 MG PO SCH (06:30)
[2016-07-14 07:18] VITALS: BP 120/82; PULSE 64; TEMP 98.3
[2016-07-14] MEDS: MAG HYDROX/AL HYDROX/SIMETH 30 ML UNIT-DOSE CUP PO PRN (09:04)
[2016-07-14] MEDS: NICOTINE 21 MG/24 HOURS TOPICAL PATCH TD SCH (10:01)
[2016-07-14] MEDS: ESCITALOPRAM OXALATE 10 MG TABLET (FP) PO SCH (10:01)
[2016-07-14] MEDS: DIVALPROEX SODIUM 250 MG TABLET E.C. (FP) PO SCH (10:01)
[2016-07-14] MEDS: RANITIDINE HCL 150 MG TABLET (FP) PO SCH (10:01)
[2016-07-14] MEDS: PRENATAL VITAMINS W/ FOLIC ACID TABLET (FP) PO SCH (10:01)
== END 2016-07-14 18:40 | disposition left against medical advice (07) | DRG 770 ==
LOC: YASAS 10:37 → Y3E 10:38
PROVIDERS: ADMIT Psychiatry & Neurology Psychiatry; ATTEND Psychiatry & Neurology Psychiatry
PROC: HZ42ZZZ Group Counseling for Substance Abuse Treatment, Cognitive-Behavioral (ICD-10-PCS; principal; 2016-07-14)
DX: F11.20 Opioid dependence, uncomplicated (principal); F10.230 Alcohol dependence with withdrawal, uncomplicated; F14.20 Cocaine dependence, uncomplicated; F17.213 Nicotine dependence, cigarettes, with withdrawal; F25.9 Schizoaffective disorder, unspecified; K21.9 Gastro-esophageal reflux disease without esophagitis
CPT/HCPCS: 36415; 80164; J2794

== ENCOUNTER 2016-07-09 08:46 | Emergency (ER) | payer OTHER ==
[2016-07-09 09:02] VITALS: TEMP 98.2; BMI 20.5
--- NOTE | 2016-07-09 09:39 | PDOC ---
Attending Attestation - Resident Resident Name: Sherif Hamilton - ED Attending Attestation I have performed the following: I have examined & evaluated the patient, The case was reviewed & discussed with the resident, I agree w/resident's findings & plan, Exceptions are as noted - HPI HPI: 07/09/16 09:41 The patient is a 50-year-old female with a significant past medical history of polysubstance abuse (alcohol and cocaine) who presents to the emergency department from the [facility] and rehabilitation [place] complaining of low back pain and headache, and reporting 2 falls in the past 48 hours. The first fall involved head trauma. 07/09/16 09:52 - Physicial Exam PE: 07/09/16 09:53 She is well appearing and in no acute distress No CTLS spinal tenderness - Medical Decision Making 07/09/16 09:[address] head given head trauma and medicated status 07/09/16 10:48 CT noted, no evidence of acute traumatic injury Clinical impression: Closed head injury, without concussive symptoms I discussed the physical exam findings, ancillary test results and final diagnoses with the patient. I answered all of the patient's questions. The patient was satisfied with the care received and felt comfortable with the discharge plan and treatment plan. The patient will call their primary care physician within 24 hours to arrange follow-up and will return to the Emergency Department with any new, persistent or worsening symptoms.
[2016-07-09] MEDS ORDERED: ACETAMINOPHEN 325 MG TABLET (FP) PO ONE (09:52)
--- NOTE | 2016-07-09 09:53 | PDOC ---
History of Present Illness <Sherif Hamilton - Last Filed: 07/09/16 10:48> - General History Source: Patient, EMS, Old Records Exam Limitations: Clinical Condition - History of Present Illness Initial Comments: 07/09/16 09:55 The patient is a 50-year-old woman, currently at [facility] [place] (for heroine and EtOH) with a significant past medical history of polysubstance abuse (alcohol, heroine and cocaine), GI disorders and suicide attempt (2013) who presents to the emergency department for further evaluation of right sided gluteal pain and headache status post 2 falls in the past 48 hours. She reports that the first fall, she was in the bathroom, getting ready to get up form the toilet when she felt lightheaded and palpitations and fell, injuring the occipital region of her head. She states that at that time, she did not inform anyone at [facility], thus she did not come to the emergency department. Today, the same instance happened, but she informed the staff, thus she presents to the ED. No loss of consciousness, chest pain, dizziness, abdominal pain, nausea, vomiting, diarrhea, urinary complaints. Allergies: No Known Drug Allergies Past Surgical History: None reported. Social History: Current everyday cigarette smoker (half a pack/day). History of EtOH abuse- 1 pint of Vodka/day (last drink was approximately 2 weeks ago). History of polysubstance abuse (last use- heroine- approximately 2 weeks ago) <Domonique Redmond - Last Filed: 07/09/16 10:53> <Heri Thomas - Last Filed: 07/09/16 11:12> - General Chief Complaint: Injury Stated Complaint: FALL Time Seen by Provider: 07/09/16 09:39 Past History - Past Medical History Anemia: No Asthma: No Cancer: No Cardiac Disorders: No CVA: No COPD: No CHF: No Dementia: No Diabetes: No GI Disorders: Yes Disorders: No HTN: No Hypercholesterolemia: No Kidney Stones: No Liver Disease: No Suicide Attempt (Hx): Yes (2013) Seizures: No Thyroid Disease: No - Surgical History Abdominal Surgery: No Appendectomy: No Cardiac Surgery: No Cholecystectomy: No Lung Surgery: No Neurologic Surgery: No Orthopedic Surgery: No - Reproductive History PID: No - Psycho/Social/Smoking Cessation Hx Anxiety: No Suicidal Ideation: No Smoking History: Current every day smoker Have you smoked in the past 12 months: Yes Number of Cigarettes Smoked Daily: 20 Cigars Per Day: 0 Information on smoking cessation initiated: No 'Breaking Loose' booklet given: 07/01/16 Hx Alcohol Use: No Drug/Substance Use Hx: No Substance Use Type: Alcohol, Cocaine, Heroin Hx Substance Use Treatment: Yes <Sherif Hamilton - Last Filed: 07/09/16 10:48> <Domonique Redmond - Last Filed: 07/09/16 10:53> <Heri Thomas - Last Filed: 07/09/16 11:12> - Past Medical History Allergies/Adverse Reactions: Allergies Allergy/AdvReac Type Severity Reaction Status Date / Time No Known Allergies Allergy Verified 07/01/16 18:17 Home Medications: Ambulatory Orders Divalproex [Depakote -] 750 mg PO BID #60 tab 07/02/16 Escitalopram Oxalate [Lexapro -] 10 mg PO DAILY #30 tab 07/02/16 Risperidone [Risperdal -] 1 mg PO HS #30 tablet 07/02/16 Methadone [Dolophine -] 130 mg PO DAILY 07/05/16 Nicotine Patch [Nicoderm Patch -] 21 mg TP DAILY 07/05/16 Ranitidine [Zantac -] 150 mg PO DAILY 07/05/16 Review of Systems - Review of Systems Able to Perform ROS?: No (Limited/ Poor Historian) <Domonique Redmond - Last Filed: 07/09/16 10:53> *Physical Exam - Vital Signs Last Vital Signs Temp Pulse Resp BP Pulse Ox 98.2 F 55 L 20 106/68 95 07/09/16 08:49 07/09/16 08:49 07/09/16 08:49 07/09/16 08:49 07/09/16 08:49 <Sherif Hamilton - Last Filed: 07/09/16 10:48> - Vital Signs Last Vital Signs Temp Pulse Resp BP Pulse Ox 98.2 F 55 L 20 106/68 95 07/09/16 08:49 07/09/16 08:49 07/09/16 08:49 07/09/16 08:49 07/09/16 08:49 - Physical Exam Comments: 07/09/16 09:55 GENERAL: Lethargic. No acute distress. HEENT: Mildly tender to palpation in mid-occipital region. No hematoma. EOMI. No conjunctival pallor. Sclera are non-icteric. Dry mucous membranes. NECK: No cervical tenderness. Supple. Full ROM. CARDIOVASCULAR: Regular rate and rhythm. No murmurs, rubs, or gallops. PULMONARY: No evidence of respiratory distress. Lungs clear to auscultation bilaterally. No wheezing, rales or rhonchi. ABDOMINAL: Soft. Non-tender. Non-distended. No rebound or guarding. No organomegaly. Normoactive bowel sounds. MUSCULOSKELETAL: No spinal tenderness. No paraspinal muscle tenderness. No muscle spasms. Normal range of motion at all joints. No bony deformities or tenderness. No CVA tenderness. EXTREMITIES: No cyanosis. No clubbing. No edema. No calf tenderness. SKIN: Warm and dry. Normal capillary refill. No rashes. No jaundice. NEUROLOGICAL: Normal speech. PSYCHIATRIC: Deferred. <Domonique Redmond - Last Filed: 07/09/16 10:53> - Vital Signs Last Vital Signs Temp Pulse Resp BP Pulse Ox 98.2 F 55 L 20 106/68 95 07/09/16 08:49 07/09/16 08:49 07/09/16 08:49 07/09/16 08:49 07/09/16 08:49 <Heri Thomas - Last Filed: 07/09/16 11:12> ED Treatment Course - RADIOLOGY Radiograph Interpretation: 07/09/16 10:53 EXAM: CT/HEAD CT WITHOUT CONTRAST Interpreted by Dr. Bigg Cruz IMPRESSION: CT scan of the brain A noncontrast CT scan of the brain was performed. There is mild volume loss and ventricular dilatation. No mass lesion , gross acute infarct or intracranial hemorrhage is seen. Visualized paranasal sinuses and mastoid air cells are well-aerated. The calvarium is intact. <Domonique Redmond - Last Filed: 07/09/16 10:53> - ADDITIONAL ORDERS Additional order review: Laboratory Results 07/09/16 10:32 Urine HCG, Qual Negative - RADIOLOGY Radiology Studies Ordered: Category Date Time Status HEAD CT WITHOUT CONTRAST [CT] Stat CT Scan 07/09/16 09:51 Completed - Medications Given in the ED: ED Medications Discontinued Medications Generic Name Dose Route Start Last Admin Trade Name Latesha PRN Reason Stop Dose Admin Acetaminophen 975 mg 07/09/16 09:52 07/09/16 09:56 Tylenol - PO 07/09/16 09:53 975 mg ONCE ONE Administration <Heri Thomas - Last Filed: 07/09/16 11:12> Medical Decision Making - Medical Decision Making 07/09/16 10:[address] head. Pt states she is post-menopausal (menopause 5 years ago) Pt continuously coming out of room asking to let her go home and that she feels fine. I explained to pt that we will need a head CT to rule out pathology in the head. 07/09/16 10:48 CT head noted: no gross evidence of a focal intracranial lesion or hemorrhage is seen. Mild volume loss. Pt to be discharged back to [facility]. <Sherif Hamilton - Last Filed: 07/09/16 10:48> *DC/Admit/Observation/Transfer - Discharge Dispostion Admit: No <Sherif Hamilton - Last Filed: 07/09/16 10:48> - Attestations Scribe Attestion: 07/09/16 10:10 Documentation prepared by Domonique Redmond, acting as medical assisting program director for Sherif Hamilton MD. <Domonique Redmond - Last Filed: 07/09/16 10:53> <Heri Thomas - Last Filed: 07/09/16 11:12> Diagnosis at time of Disposition: Closed head injury, Fall - Discharge Dispostion Disposition: HOME - Patient Instructions Printed Discharge Instructions: DI for Closed Head Injury, How to Prevent Falls Additional Instructions: Your head CT scan did not show any signs of bleeding or acute pathology. Please follow up with your primary care physician after this emergency room visit. If your symptoms worsen come back to the emergency room.
[2016-07-09] MEDS ORDERED: ACETAMINOPHEN 325 MG TABLET (FP) ONE (09:58)
[2016-07-09 11:53] VITALS: BP 116/70; PULSE 60
== END 2016-07-09 11:58 | disposition other institution (70) ==
LOC: JER 08:46
DX: S09.8XXA Other specified injuries of head, initial encounter (principal); W18.11XA Fall from or off toilet without subsequent striking against object, initial encounter; Y93.89 Activity, other specified; Y92.231 Patient bathroom in hospital as the place of occurrence of the external cause; Y99.8 Other external cause status; F11.20 Opioid dependence, uncomplicated; F10.20 Alcohol dependence, uncomplicated
CPT/HCPCS: 70450-TC; 84703; 99281-25

== ENCOUNTER 2017-02-20 15:09 | Inpatient (IN) | payer OTHER ==
[2017-02-20 15:54] VITALS: BMI 28.7
--- NOTE | 2017-02-20 16:10 | HP ---
CIWA Score - CIWA Score Nausea/Vomitin Muscle Tremors: 3 Anxiety: 3 Agitation: 3 Paroxysmal Sweats: 2 Orientation: 0-Oriented Tacttile Disturbances: 2-Mild Itch/Numbness/Burn Auditory Disturbances: 2-Mild Harshness/Frighten Visual Disturbances: 2-Mild Sensitivity Headache: 2-Mild CIWA-Ar Total Score: 22 Admission ROS BHS - HPI Chief Complaint: i need help to stop drinking alcohol,xanax,coaine and heroin abused, Allergies/Adverse Reactions: Allergies Allergy/AdvReac Type Severity Reaction Status Date / Time No Known Allergies Allergy Verified 02/20/17 18:06 History of Present Illness: this 50 years with alcohol,xanax,cocaine dependence,heroin abused,seekind detox ,last treatment [facility] 07/05/16 to 07/14/16 on methadone program 130 mgs po dailty,last medicated today has bottle to take home for 02/21/17 and 02/22/17 bipolar and schizoaffective disorder nicotine dependence 10 cigarette/day hepatitis c treated longest period of sobriety 2 years Exam Limitations: No Limitations - Ebola screening Have you traveled outside of the country in the last 21 days: No Have you been sick,other than usual withdrawal symptoms: No - Review of Systems Constitutional: Loss of Appetite, Malaise, Night Sweats, Changes in sleep, Weakness EENT: reports: Nose Congestion Respiratory: reports: No Symptoms reported Cardiac: reports: No Symptoms Reported GI: reports: Diarrhea, Nausea, Vomiting, Abdominal cramping : reports: No Symptoms Reported Musculoskeletal: reports: Back Pain, Muscle Pain Integumentary: reports: Dryness Neuro: reports: Headache, Tremors Endocrine: reports: No Symptoms Reported Hematology: reports: No Symptoms Reported Psychiatric: reports: other (bipolar disorder,schizoaffective disorder) Patient History - Patient Medical History Hx Anemia: No Hx Asthma: No Hx Chronic Obstructive Pulmonary Disease (COPD): No Hx Cancer: No Hx Cardiac Disorders: No Hx Congestive Heart Failure: No Hx Hypertension: No Hx Hypercholesterolemia: No Hx Pacemaker: No HX Cerebrovascular Accident: No Hx Seizures: No Hx Dementia: No Hx Diabetes: No Hx Gastrointestinal Disorders: Yes Hx Liver Disease: No Hx Genitourinary Disorders: No Hx Sexually Transmitted Disorders: No Hx Renal Disease (ESRD): No Hx Thyroid Disease: No Hx Human Immunodeficiency Virus (HIV): No Hx Hepatitis C: No Hx Depression: Yes Hx Suicide Attempt: Yes (2013 cut) Hx Bipolar Disorder: Yes Hx Schizophrenia: Yes (schizoaffective disorder) Other Medical History: no suicidal,no homicidal - Patient Surgical History Past Surgical History: No Hx Neurologic Surgery: No Hx Cataract Extraction: No Hx Cardiac Surgery: No Hx Lung Surgery: No Hx Breast Surgery: No Hx Breast Biopsy: No Hx Abdominal Surgery: No Hx Appendectomy: No Hx Cholecystectomy: No Hx Genitourinary Surgery: No Hx Section: No Hx Orthopedic Surgery: No Anesthesia Reaction: No - PPD History Previous Implant?: Yes Documented Results: Negative w/proof Date: 07/03/16 Results: 0mm PPD to be Administered?: No - Reproductive History Patient is a Female of Child Bearing Age (11 -55 yrs old): Yes Last Menstrual Period: 07/02/11 Patient : No - Smoking Cessation Smoking history: Current every day smoker Have you smoked in the past 12 months: Yes Aproximately how many cigarettes per day: 10 Cigars Per Day: 0 Hx Chewing Tobacco Use: No Initiated information on smoking cessation: Yes 'Breaking Loose' booklet given: 02/20/17 - Substance & Tx. History Hx Alcohol Use: Yes Hx Substance Use: Yes Substance Use Type: Alcohol, Cocaine, Heroin, Tranquilizers Hx Substance Use Treatment: Yes ([facility] 07/05/16 to 07/14/16) - Substances Abused Alcohol Route: Oral Frequency: Daily Amount used: 1pint of bacardi/6 packs of 12 ozs of beer Age of first use: 16 Date of Last Use: 02/19/17 Cocaine Route: Smoking Frequency: Daily Amount used: 100$ Age of first use: 22 Date of Last Use: 02/19/17 Alprazolam (Xanax) Route: Oral Frequency: 3-6 times per week Amount used: 2 mgs Age of first use: 51 Date of Last Use: 02/17/17 Heroin Route: Inhalation Frequency: Daily Amount used: 2 bags Age of first use: 22 Date of Last Use: 02/19/17 Family Disease History - Family Disease History Family Disease History: Other: Father (NO CONTACT), Mother (NO CONTACT) Admission Physical Exam BHS - Vital Signs Vital Signs: Vital Signs - 24 hr 02/20/17 15:48 Temperature 98.7 F Pulse Rate 63 Respiratory 18 Rate Blood Pressure 150/86 - Physical General Appearance: Yes: Moderate Distress, Tremorous, Irritable, Sweating, Anxious HEENTM: Yes: Normal ENT Inspection, NEISHA, Pharynx Normal Respiratory: Yes: Lungs Clear, Normal Breath Sounds, No Respiratory Distress Neck: Yes: Within Normal Limits, Supple, Trachea in good position Breast: Yes: Breast Exam Deferred Cardiology: Yes: Within Normal Limits, Regular Rhythm, Regular Rate, S1, S2 Abdominal: Yes: Within Normal Limits, Normal Bowel Sounds, Non Tender, Soft Genitourinary: Yes: Within Normal Limits Back: Yes: Within Normal Limits, Muscle Spasm Musculoskeletal: Yes: full range of Motion, Back pain, Muscle Pain Extremities: Yes: Tremors Neurological: Yes: agribusiness internship II-XII NML intact, Fully Oriented, Alert, Motor Strength 5/5 Integumentary: Yes: Dry Lymphatic: Yes: Within Normal Limits - Diagnostic (1) Uncomplicated sedative, hypnotic or anxiolytic withdrawal Current Visit: Yes Status: Acute (2) Alcohol dependence with uncomplicated withdrawal Current Visit: No Status: Acute (3) Cocaine dependence, uncomplicated Current Visit: No Status: Acute (4) Fall Current Visit: No Status: Acute (5) Methadone maintenance therapy patient Current Visit: No Status: Acute Comment: 130 MG VERIFICATION PENDING (6) Nicotine dependence Current Visit: No Status: Chronic Qualifiers: Nicotine product type: cigarettes Substance use status: in withdrawal Qualified Code(s): F17.213 - Nicotine dependence, cigarettes, with withdrawal (7) GERD (gastroesophageal reflux disease) Current Visit: No Status: Chronic Qualifiers: Esophagitis presence: without esophagitis Qualified Code(s): K21.9 - Gastro -esophageal reflux disease without esophagitis (8) Schizoaffective disorder Current Visit: No Status: Chronic Cleared for Admission [facility] - Detox or Rehab [facility] Level of Care: Medically Managed Detox Regimen/Protocol: Librium [facility] Breath Alcohol Content Breath Alcohol Content: 0 Urine Pregancy Test - Result Urine Test Results: Negative- NO Line Present Urine Drug Screen - Results Drug Screen Negative: No Urine Drug Screen Results: JANNET-Cocaine, OPI-Opiates, MET-Methamphetamine, BZO- Benzodiazepines, MTD-Methadone, TCA-Tricyclic Antidepress, OXY-Oxycodone
[2017-02-20] MEDS ORDERED: MAGNESIUM CITRATE 300 ML BOTTLE PO PRN (16:22)
[2017-02-20] MEDS ORDERED: MAGNESIUM HYDROX 2400MG/30ML ORAL SUSPENSION 30 ML CUP PO PRN (16:22)
[2017-02-20] MEDS ORDERED: guaiFENesin/D-METHORPHAN HB 10 ML UNIT-DOSE CUPS PO PRN (16:22)
[2017-02-20] MEDS ORDERED: P-EPHED 60MG/TRIPROLIDI 2.5MG TABLET PO PRN (16:22)
[2017-02-20] MEDS ORDERED: chlordiazePOXIDE HCL 25 MG CAPSULE PO ONE (16:22)
[2017-02-20] MEDS ORDERED: NICOTINE POLACRILEX 2 MG GUM BUC PRN (16:22)
[2017-02-20] MEDS ORDERED: IBUPROFEN 400 MG TABLET (FP) PO PRN (16:22)
[2017-02-20] MEDS ORDERED: chlordiazePOXIDE HCL 25 MG CAPSULE PO PRN (16:22)
[2017-02-20] MEDS ORDERED: LOPERAMIDE HCL 2 MG CAPSULE PO PRN (16:22)
[2017-02-20] MEDS ORDERED: ACETAMINOPHEN 325 MG TABLET (FP) PO PRN (16:22)
[2017-02-20] MEDS ORDERED: hydrOXYzine PAMOATE 25 MG CAPSULE (FP) PO PRN (16:22)
[2017-02-20] MEDS ORDERED: MAG HYDROX/AL HYDROX/SIMETH 30 ML UNIT-DOSE CUP PO PRN (16:22)
[2017-02-20] MEDS ORDERED: MENTHOL/PHENOL 1 EACH UD MM PRN (16:22)
[2017-02-20] MEDS: NICOTINE 21 MG/24 HOURS TOPICAL PATCH TD SCH (18:29)
[2017-02-20 21:35] LABS: URINE APPEARANCE CLEAR; URINE BILIRUBIN NEGATIVE (NEGATIVE); URINE BLOOD NEGATIVE (NEGATIVE); URINE COLOR YELLOW; URINE GLUCOSE (UA) NEGATIVE (NEGATIVE); URINE KETONE NEGATIVE (NEGATIVE); URINE LEUK ESTERASE TRACE (NEGATIVE); URINE NITRITE NEGATIVE (NEGATIVE); URINE PROTEIN NEGATIVE (NEGATIVE); URINE UROBILINOGEN NEGATIVE mg/dL (0.2-1.0)
[2017-02-20 21:56] LABS: EPI CELLS RARE /HPF (FEW); URINE BACTERIA RARE /hpf (NONE SEEN); URINE MUCUS RARE
[2017-02-20] MEDS: chlordiazePOXIDE HCL 25 MG CAPSULE PO SCH (22:58)
[2017-02-20] MEDS: THIAMINE HCL 100 MG TABLET (FP) PO SCH (22:58)
[2017-02-21] MEDS ORDERED: METHADONE HCL 40 MG DISPERSABLE TABLET ONE (05:15)
[2017-02-21] MEDS ORDERED: METHADONE HCL 10 MG TABLET ONE (05:15)
[2017-02-21] MEDS: chlordiazePOXIDE HCL 25 MG CAPSULE PO SCH ×4 (05:53→22:48)
[2017-02-21] MEDS: METHADONE 120 MG, METHADONE 10 MG PO SCH (05:54)
[2017-02-21] MEDS ORDERED: METHADONE HCL 10 MG TABLET PO SCH (06:00)
[2017-02-21 10:03] LABS: HEMATOCRIT 37.1 % (32.4-45.2); HEMOGLOBIN 11.4 GM/dL (10.7-15.3); MCH 22.4 pg (25.7-33.7); MCHC 30.9 g/dl (32.0-36.0); MEAN CELL VOLUME 72.5 fl (80-96); MEAN PLT VOLUME 7.7 fl (7.5-11.1); PLATELET COUNT 257 K/MM3 (134-434); RBC 5.11 M/mm3 (3.60-5.2); RDW 15.5 % (11.6-15.6); WHITE BLOOD COUNT 5.2 K/mm3 (4.0-10.0)
[2017-02-21 10:25] LABS: ALBUMIN 3.4 g/dl (3.4-5.0); ANION GAP 3 (8-16); BLOOD UREA NITROGEN 8 mg/dL (7-18); CALCIUM 8.4 mg/dL (8.5-10.1); CHLORIDE 104 mmol/L (98-107); CO2 32 mmol/L (21-32); GLUCOSE,RANDOM 109 mg/dL (74-106); POTASSIUM 4.1 mmol/L (3.5-5.1); SODIUM 139 mmol/L (136-145)
[2017-02-21 10:30] LABS: ALK PHOS 109 U/L (45-117); BILIRUBIN,TOTAL 0.4 mg/dL (0.2-1.0); CREATININE 0.9 mg/dL (0.55-1.02); SGOT/AST 24 U/L (15-37); SGPT/ALT 27 U/L (12-78); TOT PROT 7.4 g/dl (6.4-8.2)
--- NOTE | 2017-02-21 10:38 | PN ---
[facility] CIWA - CIWA Score Nausea/Vomitin-Mild Nausea/No Vomiting Muscle Tremors: 4-Moderate,w/Arms Extend Anxiety: 4-Mod. Anxious/Guarded Agitation: 4-Moderately Restless Paroxysmal Sweats: 1-Minimal Palms Moist Orientation: 0-Oriented Tacttile Disturbances: 1-Very Mild Itch/Numbness Auditory Disturbances: 0-None Visual Disturbances: 0-None Headache: 0-None Present CIWA-Ar Total Score: 15 BHS Progress Note (SOAP) Subjective: sweating tremor anxiety irritable agitative unable to sleep throughout the night Objective: 02/21/17 10:37 Vital Signs Temperature 98.1 F 02/21/17 06:00 Pulse Rate 60 02/21/17 06:00 Respiratory Rate 18 02/21/17 06:00 Blood Pressure 131/73 02/21/17 06:00 O2 Sat by Pulse Oximetry (%) Laboratory Last Values WBC 5.2 K/mm3 (4.0-10.0) 02/21/17 07:30 RBC 5.11 M/mm3 (3.60-5.2) 02/21/17 07:30 Hgb 11.4 GM/dL (10.7-15.3) 02/21/17 07:30 Hct 37.1 % (32.4-45.2) 02/21/17 07:30 MCV 72.5 fl (80-96) L 02/21/17 07:30 MCH 22.4 pg (25.7-33.7) L 02/21/17 07:30 MCHC 30.9 g/dl (32.0-36.0) L 02/21/17 07:30 RDW 15.5 % (11.6-15.6) 02/21/17 07:30 Plt Count 257 K/MM3 (134-434) 02/21/17 07:30 MPV 7.7 fl (7.5-11.1) D 02/21/17 07:30 Sodium 139 mmol/L (136-145) 02/21/17 07:30 Potassium 4.1 mmol/L (3.5-5.1) 02/21/17 07:30 Chloride 104 mmol/L (98-107) 02/21/17 07:30 Carbon Dioxide 32 mmol/L (21-32) 02/21/17 07:30 Anion Gap 3 (8-16) L 02/21/17 07:30 BUN 8 mg/dL (7-18) 02/21/17 07:30 Creatinine 0.9 mg/dL (0.55-1.02) 02/21/17 07:30 Creat Clearance w eGFR > 60 (>60) 02/21/17 07:30 Random Glucose 109 mg/dL (74-106) H 02/21/17 07:30 Calcium 8.4 mg/dL (8.5-10.1) L 02/21/17 07:30 Total Bilirubin 0.4 mg/dL (0.2-1.0) D 02/21/17 07:30 AST 24 U/L (15-37) 02/21/17 07:30 ALT 27 U/L (12-78) D 02/21/17 07:30 Alkaline Phosphatase 109 U/L (45-117) 02/21/17 07:30 Total Protein 7.4 g/dl (6.4-8.2) 02/21/17 07:30 Albumin 3.4 g/dl (3.4-5.0) 02/21/17 07:30 Urine Color Yellow 02/20/17 17:55 Urine Appearance Clear 02/20/17 17:55 Urine pH 5.0 (5.0-8.0) 02/20/17 17:55 Ur Specific [place] 1.013 (1.001-1.035) 02/20/17 17:55 Urine Protein Negative (NEGATIVE) 02/20/17 17:55 Urine Glucose (UA) Negative (NEGATIVE) 02/20/17 17:55 Urine Ketones Negative (NEGATIVE) 02/20/17 17:55 Urine Blood Negative (NEGATIVE) 02/20/17 17:55 Urine Nitrite Negative (NEGATIVE) 02/20/17 17:55 Urine Bilirubin Negative (NEGATIVE) 02/20/17 17:55 Urine Urobilinogen Negative mg/dL (0.2-1.0) 02/20/17 17:55 Ur Leukocyte Esterase Trace (NEGATIVE) 02/20/17 17:55 Urine WBC (Auto) <1 /hpf (3-5) 02/20/17 17:55 Urine RBC (Auto) 1 /hpf (0-3) 02/20/17 17:55 Ur Epithelial Cells Rare /HPF (FEW) 02/20/17 17:55 Urine Bacteria Rare /hpf (NONE SEEN) 02/20/17 17:55 Urine Mucus Rare 02/20/17 17:55 lab noted Assessment: 02/21/17 10:37 withdrawal sx Plan: continue detox
[2017-02-21] MEDS: RANITIDINE HCL 150 MG TABLET (FP) PO SCH (10:56)
[2017-02-21] MEDS: PRENATAL VITAMINS W/ FOLIC ACID TABLET (FP) PO SCH (10:56)
[2017-02-21] MEDS: NICOTINE 21 MG/24 HOURS TOPICAL PATCH TD SCH (10:57)
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
[2017-02-21] MEDS: ESCITALOPRAM OXALATE 20 MG TABLET (FP) PO SCH (13:47)
[2017-02-21] MEDS: risperiDONE 2 MG TABLET PO SCH ×2 (13:47→22:48)
[2017-02-21] MEDS: GABAPENTIN 300 MG CAPSULE (FP) PO SCH ×2 (13:47→22:48)
[2017-02-21] MEDS: LITHIUM CARBONATE 300 MG CAPSULE (FP) PO SCH ×2 (13:47→22:48)
[2017-02-21] MEDS: THIAMINE HCL 100 MG TABLET (FP) PO SCH (22:47)
[2017-02-21] MEDS: QUEtiapine FUMARATE 100 MG TABLET (FP) PO SCH (22:49)
[2017-02-22] MEDS ORDERED: METHADONE HCL 40 MG DISPERSABLE TABLET ONE (04:41)
[2017-02-22] MEDS ORDERED: METHADONE HCL 10 MG TABLET ONE (04:42)
[2017-02-22] MEDS: chlordiazePOXIDE HCL 25 MG CAPSULE PO SCH ×3 (06:48→17:15)
[2017-02-22] MEDS: METHADONE 120 MG, METHADONE 10 MG PO SCH (06:48)
[2017-02-22] MEDS: GABAPENTIN 300 MG CAPSULE (FP) PO SCH ×3 (06:49→22:53)
[2017-02-22] MEDS: risperiDONE 2 MG TABLET PO SCH ×2 (10:58→22:53)
[2017-02-22] MEDS: NICOTINE 21 MG/24 HOURS TOPICAL PATCH TD SCH (10:58)
[2017-02-22] MEDS: LITHIUM CARBONATE 300 MG CAPSULE (FP) PO SCH ×2 (10:58→22:53)
[2017-02-22] MEDS: RANITIDINE HCL 150 MG TABLET (FP) PO SCH (10:58)
[2017-02-22] MEDS: PRENATAL VITAMINS W/ FOLIC ACID TABLET (FP) PO SCH (10:58)
[2017-02-22] MEDS: ESCITALOPRAM OXALATE 20 MG TABLET (FP) PO SCH (10:58)
--- NOTE | 2017-02-22 11:48 | EKG ---
Test Reason : Blood Pressure : / mmHG Vent. Rate : 063 BPM Atrial Rate : 063 BPM P-R Int : 138 ms QRS Dur : 084 ms QT Int : 454 ms P-R-T Axes : 054 038 034 degrees QTc Int : 464 ms NORMAL SINUS RHYTHM NORMAL ECG WHEN COMPARED WITH ECG OF 01-JUL-2016 18:41, NO SIGNIFICANT CHANGE WAS FOUND Confirmed by DINESH CARTER MD ([id number]) on 02/22/2017 11:47:47 AM Referred By: Mario Merrill Confirmed By:DINESH CARTER MD
--- NOTE | 2017-02-22 14:23 | PN ---
S CIWA - CIWA Score Nausea/Vomitin Muscle Tremors: 3 Anxiety: 3 Agitation: 2 Paroxysmal Sweats: 1-Minimal Palms Moist Orientation: 0-Oriented Tacttile Disturbances: 1-Very Mild Itch/Numbness Auditory Disturbances: 1-Very Mild Visual Disturbances: 0-None Headache: 2-Mild CIWA-Ar Total Score: 16 BHS Progress Note (SOAP) Subjective: ALERT,IRRITABLE,ANXIOUS,INTERRUPTED SLEEP,TREMOR,PAIN IN THE BODY Objective: 02/22/17 14:21 Vital Signs Temperature 97.7 F 02/22/17 11:58 Pulse Rate 59 L 02/22/17 11:58 Respiratory Rate 16 02/22/17 11:58 Blood Pressure 101/69 02/22/17 11:58 O2 Sat by Pulse Oximetry (%) EKG NSR,NORMAL ECG Laboratory Last Values WBC 5.2 K/mm3 (4.0-10.0) 02/21/17 07:30 RBC 5.11 M/mm3 (3.60-5.2) 02/21/17 07:30 Hgb 11.4 GM/dL (10.7-15.3) 02/21/17 07:30 Hct 37.1 % (32.4-45.2) 02/21/17 07:30 MCV 72.5 fl (80-96) L 02/21/17 07:30 MCH 22.4 pg (25.7-33.7) L 02/21/17 07:30 MCHC 30.9 g/dl (32.0-36.0) L 02/21/17 07:30 RDW 15.5 % (11.6-15.6) 02/21/17 07:30 Plt Count 257 K/MM3 (134-434) 02/21/17 07:30 MPV 7.7 fl (7.5-11.1) D 02/21/17 07:30 Sodium 139 mmol/L (136-145) 02/21/17 07:30 Potassium 4.1 mmol/L (3.5-5.1) 02/21/17 07:30 Chloride 104 mmol/L (98-107) 02/21/17 07:30 Carbon Dioxide 32 mmol/L (21-32) 02/21/17 07:30 Anion Gap 3 (8-16) L 02/21/17 07:30 BUN 8 mg/dL (7-18) 02/21/17 07:30 Creatinine 0.9 mg/dL (0.55-1.02) 02/21/17 07:30 Creat Clearance w eGFR > 60 (>60) 02/21/17 07:30 Random Glucose 109 mg/dL (74-106) H 02/21/17 07:30 Calcium 8.4 mg/dL (8.5-10.1) L 02/21/17 07:30 Total Bilirubin 0.4 mg/dL (0.2-1.0) D 02/21/17 07:30 AST 24 U/L (15-37) 02/21/17 07:30 ALT 27 U/L (12-78) D 02/21/17 07:30 Alkaline Phosphatase 109 U/L (45-117) 02/21/17 07:30 Total Protein 7.4 g/dl (6.4-8.2) 02/21/17 07:30 Albumin 3.4 g/dl (3.4-5.0) 02/21/17 07:30 Urine Color Yellow 02/20/17 17:55 Urine Appearance Clear 02/20/17 17:55 Urine pH 5.0 (5.0-8.0) 02/20/17 17:55 Ur Specific [place] 1.013 (1.001-1.035) 02/20/17 17:55 Urine Protein Negative (NEGATIVE) 02/20/17 17:55 Urine Glucose (UA) Negative (NEGATIVE) 02/20/17 17:55 Urine Ketones Negative (NEGATIVE) 02/20/17 17:55 Urine Blood Negative (NEGATIVE) 02/20/17 17:55 Urine Nitrite Negative (NEGATIVE) 02/20/17 17:55 Urine Bilirubin Negative (NEGATIVE) 02/20/17 17:55 Urine Urobilinogen Negative mg/dL (0.2-1.0) 02/20/17 17:55 Ur Leukocyte Esterase Trace (NEGATIVE) 02/20/17 17:55 Urine WBC (Auto) <1 /hpf (3-5) 02/20/17 17:55 Urine RBC (Auto) 1 /hpf (0-3) 02/20/17 17:55 Ur Epithelial Cells Rare /HPF (FEW) 02/20/17 17:55 Urine Bacteria Rare /hpf (NONE SEEN) 02/20/17 17:55 Urine Mucus Rare 02/20/17 17:55 RPR Titer Nonreactive (NONREACTIVE) 02/21/17 07:30 HIV 1&2 Antibody Screen Negative 02/21/17 07:30 HIV P24 Antigen Negative 02/21/17 07:30 Assessment: 02/22/17 14:22 WITHDRAWAL SYMPTOM Plan: CONTINUE DETOX
[2017-02-22] MEDS: THIAMINE HCL 100 MG TABLET (FP) PO SCH (22:52)
[2017-02-22] MEDS: chlordiazePOXIDE 5 MG CAPSULE PO SCH (22:52)
[2017-02-22] MEDS: QUEtiapine FUMARATE 100 MG TABLET (FP) PO SCH (22:53)
[2017-02-23] MEDS: GABAPENTIN 300 MG CAPSULE (FP) PO SCH ×3 (05:50→22:36)
[2017-02-23] MEDS: chlordiazePOXIDE 5 MG CAPSULE PO SCH ×3 (05:50→18:31)
[2017-02-23] MEDS ORDERED: METHADONE HCL 10 MG TABLET PO ONE (08:47)
[2017-02-23] MEDS ORDERED: METHADONE 120 MG, METHADONE 10 MG PO ONE (09:10)
[2017-02-23] MEDS ORDERED: METHADONE HCL 10 MG TABLET ONE (09:49)
[2017-02-23] MEDS ORDERED: METHADONE HCL 40 MG DISPERSABLE TABLET ONE (09:49)
[2017-02-23] MEDS: risperiDONE 2 MG TABLET PO SCH ×2 (11:03→22:36)
[2017-02-23] MEDS: LITHIUM CARBONATE 300 MG CAPSULE (FP) PO SCH ×2 (11:03→22:36)
[2017-02-23] MEDS: RANITIDINE HCL 150 MG TABLET (FP) PO SCH (11:03)
[2017-02-23] MEDS: PRENATAL VITAMINS W/ FOLIC ACID TABLET (FP) PO SCH (11:03)
[2017-02-23] MEDS: ESCITALOPRAM OXALATE 20 MG TABLET (FP) PO SCH (11:03)
[2017-02-23] MEDS: NICOTINE 21 MG/24 HOURS TOPICAL PATCH TD SCH (11:04)
--- NOTE | 2017-02-23 12:15 | PN ---
BHS Progress Note (SOAP) Subjective: anxiety sweats agitation Objective: 02/23/17 12:14 Vital Signs Temperature 98.2 F 02/23/17 10:43 Pulse Rate 81 02/23/17 10:43 Respiratory Rate 18 02/23/17 10:43 Blood Pressure 112/67 02/23/17 10:43 O2 Sat by Pulse Oximetry (%) aaox3 ambulating no acute distress Assessment: 02/23/17 12:15 withdrawal sx Plan: continue detox d/c in am
[2017-02-23] MEDS: chlordiazePOXIDE HCL 10 MG CAPSULE PO SCH (22:36)
[2017-02-23] MEDS: THIAMINE HCL 100 MG TABLET (FP) PO SCH (22:36)
[2017-02-23] MEDS: QUEtiapine FUMARATE 100 MG TABLET (FP) PO SCH (22:36)
[2017-02-23 23:27] VITALS: TEMP 96.6
[2017-02-24] MEDS ORDERED: METHADONE HCL 40 MG DISPERSABLE TABLET ONE (05:24)
[2017-02-24] MEDS ORDERED: METHADONE HCL 10 MG TABLET ONE (05:24)
[2017-02-24] MEDS ORDERED: METHADONE 120 MG, METHADONE 10 MG PO SCH (06:00)
[2017-02-24] MEDS ORDERED: METHADONE HCL 40 MG DISPERSABLE TABLET PO SCH (06:00)
[2017-02-24] MEDS: GABAPENTIN 300 MG CAPSULE (FP) PO SCH (06:22)
[2017-02-24] MEDS: chlordiazePOXIDE HCL 10 MG CAPSULE PO SCH (06:22)
[2017-02-24 08:08] VITALS: BP 121/73; PULSE 69
[2017-02-24] MEDS: PRENATAL VITAMINS W/ FOLIC ACID TABLET (FP) PO SCH (09:31)
[2017-02-24] MEDS: RANITIDINE HCL 150 MG TABLET (FP) PO SCH (09:31)
[2017-02-24] MEDS: risperiDONE 2 MG TABLET PO SCH (09:31)
[2017-02-24] MEDS: LITHIUM CARBONATE 300 MG CAPSULE (FP) PO SCH (09:31)
[2017-02-24] MEDS: ESCITALOPRAM OXALATE 20 MG TABLET (FP) PO SCH (09:31)
--- NOTE | 2017-02-24 10:34 | DS ---
[facility] Detox Discharge Summary Admission Date: 02/20/17 Discharge Date: 02/24/17 - History Present History: Alcohol Dependence, Cocaine Dependence, Opioid Dependence, Sedative Dependence, MMTP Pertinent Past History: PTSD GERD HEP C - Physical Exam Results Vital Signs: Vital Signs Temperature 96.6 F L 02/23/17 23:26 Pulse Rate 69 02/24/17 08:08 Respiratory Rate 18 02/24/17 08:08 Blood Pressure 121/73 02/24/17 08:08 O2 Sat by Pulse Oximetry (%) - Treatment Hospital Course: Detox Protocol Followed, Detoxed Safely, Responded well, Discharged Condition Good, Rehab Referral Accepted Patient has Accepted a Rehab Referral to: [facility] - Medication Discharge Medications: Ambulatory Orders Methadone [Dolophine -] 130 mg PO DAILY 07/05/16 Nicotine Patch [Nicoderm Patch -] 21 mg TP DAILY 07/05/16 Ranitidine [Zantac -] 150 mg PO DAILY 07/05/16 Escitalopram Oxalate [Lexapro -] 30 mg PO DAILY 02/20/17 Gabapentin [Neurontin -] 300 mg PO Q8H 02/20/17 [place] Carbonate [Eskalith -] 150 mg PO BID 02/20/17 Quetiapine Fumarate [Seroquel] 100 tab PO HS 02/20/17 Risperidone [Risperdal -] 2 mg PO HS 02/20/17 - Diagnosis (1) Hepatitis C Current Visit: Yes Status: Acute (2) Substance-induced anxiety disorder Current Visit: Yes Status: Acute (3) Substance-induced sleep disorder Current Visit: Yes Status: Acute (4) Uncomplicated sedative, hypnotic or anxiolytic withdrawal Current Visit: Yes Status: Acute (5) Opioid dependence on agonist therapy Current Visit: Yes Status: Acute (6) Alcohol dependence with uncomplicated withdrawal Current Visit: Yes Status: Acute (7) Cocaine dependence, uncomplicated Current Visit: Yes Status: Acute (8) Methadone maintenance therapy patient Current Visit: Yes Status: Chronic (9) GERD (gastroesophageal reflux disease) Current Visit: Yes Status: Chronic Qualifiers: Esophagitis presence: without esophagitis Qualified Code(s): K21.9 - Gastro -esophageal reflux disease without esophagitis (10) Nicotine dependence Current Visit: Yes Status: Chronic Qualifiers: Nicotine product type: cigarettes Substance use status: in withdrawal Qualified Code(s): F17.213 - Nicotine dependence, cigarettes, with withdrawal (11) Schizoaffective disorder Current Visit: Yes Status: Chronic (12) Bipolar 1 disorder Current Visit: Yes Status: Chronic - AMA Did Patient Leave Against Medical Advice: No
[2017-02-24] MEDS: NICOTINE 21 MG/24 HOURS TOPICAL PATCH TD SCH (11:13)
== END 2017-02-24 09:49 | disposition home or self-care (01) | DRG 773 ==
LOC: YASAS 15:09 → Y6N 16:31
PROVIDERS: ADMIT Internal Medicine; ATTEND Internal Medicine
PROC: HZ2ZZZZ Detoxification Services for Substance Abuse Treatment (ICD-10-PCS; principal; 2017-02-20)
DX: F10.230 Alcohol dependence with withdrawal, uncomplicated (principal); F13.230 Sedative, hypnotic or anxiolytic dependence with withdrawal, uncomplicated; F11.20 Opioid dependence, uncomplicated; F14.20 Cocaine dependence, uncomplicated; F17.213 Nicotine dependence, cigarettes, with withdrawal; F19.280 Other psychoactive substance dependence with psychoactive substance-induced anxiety disorder; F19.282 Other psychoactive substance dependence with psychoactive substance-induced sleep disorder; F25.9 Schizoaffective disorder, unspecified; F31.89 Other bipolar disorder; K21.9 Gastro-esophageal reflux disease without esophagitis; Z91.5 Personal history of self-harm
CPT/HCPCS: 36415; 80053; 80178; 81003; 81015; 85027; 86593; 87389; 93005; 93010